=== PATIENT | female | born 1970 | race Caucasian/White ===

== ENCOUNTER 2017-01-24 20:59 | Emergency (ER) | payer MEDICAID ==
[2017-01-24 22:24] VITALS: BP 107/70
== END 2017-01-24 22:24 | disposition home or self-care (01) ==
LOC: ED 20:59
DX: T63.301A Toxic effect of unspecified spider venom, accidental (unintentional), initial encounter (principal); R20.0 Anesthesia of skin; Y92.89 Other specified places as the place of occurrence of the external cause